=== PATIENT | female | born 1935 | race Caucasian/White ===

== ENCOUNTER 2018-08-27 07:18 | Inpatient (IN) | payer OTHER ==
[~2018-08-27] VITALS: Ht 152.4 cm; Wt 63.6 kg
[2018-08-27 07:22] VITALS: Ht 152.4 cm; Wt 63.6 kg
--- NOTE | 2018-08-27 07:25 | NUR ---
PT C/O GENERALIZED ABD PAIN X 1 WK NO ACTIVE VOMITING. +NAUSEA ABD SOFT NON TENDER. AWAITING MD ORDERS WILL MONITOR
--- NOTE | 2018-08-27 07:30 | NUR ---
MSE COMPLETED BY DR LOPES
[2018-08-27 07:48] LABS: PLATELET COUNT 182 x10^3mcL (130-400)
--- NOTE | 2018-08-27 07:55 | NUR ---
PT TO US
[2018-08-27 08:00] LABS: CARBON DIOXIDE 29.4 mmol/L (21-32); CHLORIDE SERUM 99 mmol/L (98-107); GLUCOSE SERUM 181 mg/dL (74-106); POTASSIUM SERUM 3.6 mmol/L (3.5-5.1); SODIUM SERUM 138 mmol/L (136-145)
[2018-08-27 08:05] LABS: ALBUMIN 3.3 g/dL (3.4-5.0); ALKALINE PHOSPHATASE 99 U/L (46-116); ALT/SGPT 22 U/L (14-59); AST/SGOT 12 U/L (15-37); BAND NEUTROPHIL 2 % (0-10); BASOPHIL 0 % (0-2); BILIRUBIN TOTAL 0.66 mg/dL (0.20-1.00); LIPASE 115 IU/L (73-393); METAMYELOCTE 2 % (0-2); MONOCYTE 10 % (0-7); SEGMENTED NEUTROPHILS 72 % (37-75); TOTAL PROTEIN, SERUM 8.7 g/dL (6.4-8.2); rbc morphology (normal/abnorm) NORMAL (NORMAL)
--- NOTE | 2018-08-27 09:00 | NUR ---
PT BACK FROM US AND CT. PT IN NO DISTRESS LYING IN BED COMFORTABLE WILL MONITOR
--- NOTE | 2018-08-27 09:44 | NUR ---
IV ANTIBIOTIC ROCEPHINE 1GM AT 100ML/HR INFUSING WITH NO PROBLEM WELL NS 1L NS BOLUS. PT IN NO DISTRESS ON CM VSS WILL MONITOR
[2018-08-27] MEDS ORDERED: ZESTRIL5 MG (09:55)
[2018-08-27] MEDS ORDERED: CARVEDILOL3.125 M1 (09:55)
--- NOTE | 2018-08-27 10:13 | NUR ---
REPORT GIVEN TO ANALISA ARGUELLO RESUMING CARE OF PT IN TELE FLOOR
--- NOTE | 2018-08-27 10:20 | NUR ---
PT TRANSPORTED TO TELE FLOOR VIA GURNEY IN NO DISTRESS. AAOX4 VSS ANALISA RN RESUMING CARE OF PT
[2018-08-27 10:45] VITALS: BP 148/46
--- NOTE | 2018-08-27 10:45 | NUR ---
RECEIVED PT FROM ED WITH CC RUQ AND N/V X1 WEEK. PER PT'S DAUGHTER, PT ATE TUNA PRIOR TO SYMPTOMS STARTING. PT IS AAOX4. HAV[place]UPAI ON L EAR. RESP EVEN AND UNLABORED ON RA. C/O RUQ/EPIGASTRIC PAIN 08/04, TOLERABLE. DENIES N/V. REPORTS LAST MEAL THIS AM. PT IS NPO EXCEPT MEDS. VOIDING FREELY. PULSES PALPABLE ON ALL EXTREMITIES. AMBULATORY. IV TO RAC, NO REDNESS OR SWELLING NOTED. PT'S DAUGHTER AT BEDSIDE. ORIENTED TO ROOM AND SURROUNDINGS. HOB ELEVATED. BED IN LOW POSITION, CALL LIGHT WITHIN REACH. WILL CONTINUE TO MONITOR.
--- NOTE | 2018-08-27 14:55 | NUR ---
PT RESTING IN BED WATCHING TV. NO ACUTE DISTRESS. C/O MILD RUQ PAIN, TOLERABLE. DENIES N/V. IVF INFUSING, NO REDNESS OR SWELLING TO IV SITE. CALL LIGHT WITHIN REACH. VISITORS AT BEDSIDE. WILL CONTINUE TO MONITOR.
[2018-08-27 16:30] VITALS: BP 154/69
--- NOTE | 2018-08-27 18:21 | NUR ---
PT SITTING UP IN BED. AAOX4. RESP EVEN AND UNLABORED ON RA. C/O ABD PAIN DUE TO GAS. ENCOURAGED PT TO AMBULATE, PT REFUSED AT THIS TIME. IVF INFUSING, NO REDNESS OR SWELLING NOTED. HOB ELEVATED. VISITORS AT BEDSIDE. BED IN LOW POSITION, CALL LIGHT WITHIN REACH. WILL ENDORSE TO ONCOMING SHIFT.
--- NOTE | 2018-08-27 18:38 | NUR ---
SPOKE WITH DR. MILES OVER THE PHONE REGARDING PT C/O GAS, RECEIVED ORDER FOR SIMETHICONE 80 MG PO QID PRN, ORDERS READ BACK.
[2018-08-27 20:15] VITALS: BP 163/62
[2018-08-27] MEDS ORDERED: CARVEDILOL3.125 M1 PO (20:31)
[2018-08-27] MEDS ORDERED: HCTZ/LISINOPRIL1 TA2 PO (20:33)
--- NOTE | 2018-08-27 20:42 | NUR ---
BP 163/62, DC 79. RECONCILED PT HOME MEDS, PT PROVIDED 2 PILL BOTTLES, ONE FOR LISINOPIL/HCTZ 20-25 WHICH SHE TAKES 1 TABLET PO DAILY. SHE HAS NOT TAKEN TODAY'S DOSE PER PT. OTHER PILL BOTTLE IS FOR CARVEDILOL 3.125MG PO BID. SHE HAS ALSO NOT TAKEN AM DOSE. PAGED DR. MILES TWENTY ONE DEALER FOR DR. MONSE TOWNSEND.
--- NOTE | 2018-08-27 20:51 | NUR ---
DR. BOUCHER CALLED BACK, INFORMED OF CURRENT BP, PT HAS NOT TAKEN HOME MEDS LISINOPRIL/HCTZ 20-25MG PO DAILY AND CARVEDILOL 3.125MG PO BID. DR. MILES ORDERED BOTH HOME MEDS CONTINUED, GIVE 1ST DOSES NOW.
[2018-08-27 22:10] VITALS: BP 143/63
--- NOTE | 2018-08-27 22:52 | NUR ---
EYES CLOSED, BREATHING EVEN AND UNLABORED. IVF INFUSING WELL. CALL LIGHT WITHIN EASY REACH.
--- NOTE | 2018-08-28 04:10 | NUR ---
EYES CLOSED, BREATHING EVEN AND UNLABORED. CALL LIGHT WITHIN EASY REACH
[2018-08-28 05:14] VITALS: BP 139/61
[2018-08-28 06:31] LABS: BASOPHIL % 0.3 % (0-2); PLATELET COUNT 160 x10^3mcL (130-400)
--- NOTE | 2018-08-28 06:34 | NUR ---
AWAKE AND ALERT, STATED SLEPT WELL. AMBULATED TO RESTROOM WITH STEADY GAIT. DENIES HAVING PAIN AT THIS TIME
[2018-08-28 06:39] LABS: ALKALINE PHOSPHATASE 86 U/L (46-116); ALT/SGPT 22 U/L (14-59); AST/SGOT 18 U/L (15-37); BILIRUBIN TOTAL 0.6 mg/dL (0.20-1.00); CALCIUM 8.8 mg/dL (8.5-10.1); CARBON DIOXIDE 26.3 mmol/L (21-32); CHLORIDE SERUM 106 mmol/L (98-107); CREATININE SERUM 0.8 mg/dL (0.6-1.0); GLUCOSE SERUM 143 mg/dL (74-106); POTASSIUM SERUM 3.3 mmol/L (3.5-5.1); SODIUM SERUM 140 mmol/L (136-145); TOTAL PROTEIN, SERUM 7.2 g/dL (6.4-8.2)
[2018-08-28 06:41] LABS: ALBUMIN 2.6 g/dL (3.4-5.0)
--- NOTE | 2018-08-28 07:10 | NUR ---
RECEIVED PT FROM OCEAN EXPORT COORDINATOR NURSE. PT IN BED SLEEPING, AROUSABLE, RESP E/U ON RA. NO ACUTE DISTRESS NOTED. ON TELE 28 SHOWING NSR, HR: 60. IV TO RAC W/ NO SIGNS OF INFILRATION, IVF INFUSING WELL. BED IN LOWEST POSITION AND CALL LIGHT WITHIN REACH. WILL CONTINUE TO MONITOR.
--- NOTE | 2018-08-28 07:15 | NUR ---
EYES CLOSED, BREATHING EVEN AND UNLABORED. IVF INFUSING WELL. CALL LIGHT WITHIN EASY REACH. ENDORSED TO NURSE YULISSA
[2018-08-28 07:49] LABS: RED CELL DISTRIBUTION WIDTH 15.3 % (11.5-14.5)
[2018-08-28 08:03] VITALS: BP 130/59
--- NOTE | 2018-08-28 11:25 | NUR ---
PT RESTING IN BED, AOX4, RESP E/U ON RA. PT C/O OF FEELING DISCOMFORT FROM GAS, MEDICATED ORDERED, DENIES ABD PAIN OR N/V. BED IN LOWEST POSITION AND CALL LIGHT WITHIN REACH. FAMILY AT BEDSIDE. WILL CONTINUE TO MONITOR.
[2018-08-28 12:19] VITALS: BP 142/59
[2018-08-28 15:57] VITALS: BP 149/60
--- NOTE | 2018-08-28 18:51 | NUR ---
IV INFILTRATION TO RAC NOTED. IV REMOVED, CATH INTACT, GAUZE APPLIED. NEW IV TO LFA INSERTED AT THIS TIME, PATENT AND INTACT. IVF CONTINUED INFUSING WEL. PT AOX4, RESP E/U ON RA. DENIES PAIN OR N/V AT THIS TIME. BED IN LOWEST POSITON AND CALL LIGHT WITHIN REACH. WILL ENDORSE TO ONCOMING NURSE.
[2018-08-28 19:17] VITALS: BP 147/88
--- NOTE | 2018-08-28 19:24 | NUR ---
AWAKE AND ALERT, ORIENTED TO NAME, PLACE, TIME AND SITUATION. HOB ELEVATED 30 DEG. BREATHING EVEN AND UNLABORED ON ROOM AIR. IVF OF D5NS INFUSING AT 80ML/HR TO IV SITE TO LEFT FOREARM. CALL LIGHT WITHIN EASY REACH.
--- NOTE | 2018-08-28 19:24 | NUR ---
PT STATED WILLING TO HAVE SURGERY. PAGED DR. RAWLS VIA EXCHANGE.
--- NOTE | 2018-08-28 19:45 | NUR ---
DR. RAWLS CALLED BACK, INFORMED PT AND FAMILY MEMBERS HAVE AGREED TO SURGERY. DR. RAWLS ORDERED NPO AFTER MIDNIGHT, HOLD BLOOD THINNERS, AND CONSENT FOR LAPARASCOPIC POSSIBLE OPEN CHOLECYSTECTOMY.
--- NOTE | 2018-08-28 20:03 | NUR ---
TEMP 100.2F. COOLING MEASURES INITIATED
--- NOTE | 2018-08-28 20:22 | NUR ---
received a call from dr fong -ordered to schedule patient for 08/29 at 0900 for lap /sharif.will inform cn and assigned nurse.
--- NOTE | 2018-08-28 20:24 | NUR ---
Josette BAL informed about plan lap/sharif on patient 08/29 at 0900.
--- NOTE | 2018-08-28 20:37 | NUR ---
INFORMED PT AND PT'S FAMILY SURGERY SCHEDULED FOR 9 AM TOMORROW
--- NOTE | 2018-08-28 22:14 | NUR ---
LATE ENTRY: - CN NINOSKA INFORMED DR. TOWNSEND PT HAS AGREED TO SURGERY AND DR. RAWLS HAS SCHEDULED SURGERY FOR TOMORROW AM
--- NOTE | 2018-08-29 01:29 | NUR ---
NPO AFTER MIDNIGHT
--- NOTE | 2018-08-29 02:51 | NUR ---
eyes closed, breathing even and unlabored on room air. call light within easy reach. ivf infusing well.
--- NOTE | 2018-08-29 03:49 | NUR ---
eyes closed, breathing unlabored. call light within easy reach.
[2018-08-29 05:11] VITALS: BP 171/64
--- NOTE | 2018-08-29 06:17 | NUR ---
AWAKE AND ALERT, BREATHING EVEN AND UNLABORED. KEPT NPO EXCEPT CARVEDILOL SINCE MIDNIGHT. IVF OF D5NS INFUSING WELL. CALL LIGHT WITHIN EASY REACH.
[2018-08-29 06:35] LABS: ALKALINE PHOSPHATASE 95 U/L (46-116); ALT/SGPT 23 U/L (14-59); AST/SGOT 18 U/L (15-37); BILIRUBIN TOTAL 0.6 mg/dL (0.20-1.00); CALCIUM 8.8 mg/dL (8.5-10.1); CARBON DIOXIDE 28.6 mmol/L (21-32); CHLORIDE SERUM 106 mmol/L (98-107); CREATININE SERUM 0.8 mg/dL (0.6-1.0); GLUCOSE SERUM 141 mg/dL (74-106); MAGNESIUM 1.8 mg/dL (1.8-2.4); POTASSIUM SERUM 3.6 mmol/L (3.5-5.1); SODIUM SERUM 142 mmol/L (136-145); TOTAL PROTEIN, SERUM 7.5 g/dL (6.4-8.2)
[2018-08-29 07:10] LABS: ALBUMIN 2.6 g/dL (3.4-5.0)
--- NOTE | 2018-08-29 07:10 | NUR ---
RECEIVED PT IN EBD, VERBAL, ROMANIAN, CALM AND COPPERATIVE TO POC, REPORTED PAIN TO RUQ 7/10, DULL, S/P CHOLECYSTITIS, PERRLA, NO REDNESS/DRAINAGE, IN NO ACUTE RESP DISTRES, LUNGS CTA, CHEST RISE SYMMETRICALY, ABD ROUND AND TENDER TO TOUCH, AMBULATORY, CONTINENT, PALP PULSES, CAP REFIL < 3S, SKIN W/D/C, NO EDEMA, BS ACTIVE, LAST BM 08/24/18, PRE-OP DONE, NORY BATH DONE, CALL LIGHT IN REACH, BED AT LOW POSITION, ALL NEEDS MET, CONTINUE TO MONITOR
--- NOTE | 2018-08-29 07:13 | NUR ---
AWAKE AND ALERT, IV SITE FREE FROM ERYTHEMA OR SWELLING. ENDORSED TO NURSE JAY
--- NOTE | 2018-08-29 07:30 | NUR ---
PT REFUSED TO SIGN INFORM CONSET FOR SURGERY, ANIMAL CONTROL LICENSING WORKER LINE USED TO COMMUNICATE WITH PT, PT WANTED TO TALK TO ANESTHESIA AND SURGEON ABOUT ANESTHESIA MED USED DURING PROCEDURE AND [facility], OR NURSE AWARE, MD AWARE, ANESTHESIA MD ORDER CXR PRIOR SURGERY, PORTABLE CXR DONE AT BEDSIDE, [facility], CONTINUE TO MONITOR
--- NOTE | 2018-08-29 07:50 | NUR ---
OR TECH AND RN AWARE PT WILL SIGN INFORMED CONSENT FOR SURGERY IN THE OR AFTER SEEING ANESTHESIA MD AND SURGEON, AWARE OF [facility], EGG SEPARATOR PHONE PROVIDED TO PATIENT FOR BETTERN UNDERSTANDING OF PATIENT RIGHTS AND PROTOCOL
--- NOTE | 2018-08-29 08:15 | NUR ---
PT ASSISTED BY OR DENISSE AND RN TO SURGERY VIA MIRNA, TELE MONITOR REMOVED AND RETURNED TO [facility] TECH, PT NOT IN ACUTE DISTRESS, NPO, FAMILY AT BEDSIDE
[2018-08-29 08:37] LABS: BASOPHIL % 0 % (0-2); RED CELL DISTRIBUTION WIDTH 15.5 % (11.5-14.5)
[2018-08-29 08:39] LABS: PLATELET COUNT 176 x10^3mcL (130-400)
[2018-08-29 08:46] VITALS: BP 143/49
--- NOTE | 2018-08-29 09:30 | NUR ---
I HAVE REVIEWED THE DATA COLLECTION BY SAUNDRA CHRISTOPHER (NAME):NORY HURT ENTERED ON (DATE/TIME):08/29/18 @ 0203 I CONCUR WITH THE DATA AND ANY EXCEPTIONS OR COMMENTS ARE LISTED BELOW:
--- NOTE | 2018-08-29 12:45 | NUR ---
PT BACK FROM LAP CHOLECYSTECTOMY SURGERY PROCEDURE, SLEEPY, IN NO ACUTE DISTRESS, RESP EVEN AND NON LABORED, AT RA, 96%, IN NO APPARENT PAIN/DISCOMFORT, PT WAS UNDER GENERAL AND LOCAL ANESTHESIA DURING PROCEDURE, 3 INCISION SITE ON ABD WITH RALF, CLOSED SUTURE AND COVER WITH BANDAID, INCISION C/D AND NO S/S OF INFECTION NOTED AT THIS TIME, RANI TUBE AT RUQ NOTED SEROSANGUINOUS DRAINAGE NOTED 5CC DRAINAGE, PICS OF INCISION TAKEN BY SENIOR PRODUCT DEVELOPMENT ENGINEER AND PUT IN CHART, CHEST RISE SYMMETRICALLY, ABD ROUND, BS HYPOACTIVE X 4, PALP PULSES, CAP REFILL < 2S, V/S NOTED T-97.1, HR-60, BP-141/65, RR-20, O2 SAT-96% AT RA, FAMILY AT BEDSIDE, SCD PUT ON, IV SITE TO (L) AC PATENT AND INFUSING WELL, ALL NEEDS MET, MARIAELENA LIGHT IN REACH, BED AT LOW POSITION, RAILS X 2, CONTINUE TO MONITOR
--- NOTE | 2018-08-29 15:08 | NUR ---
PT SLEEPING IN BED, IN NO ACUTE DISTRESS, IN NO APPARENT DISCOMFORT/PAIN, RESP EVEN AND NON-LABORED, CHEST RISE SYMMETRICALLY, IV PATENT AND INFUSING WELL, SCD IN PLACE, TURN Q2H, FAMILY AT BEDSIDE, SAFETY PROTOCOL FOLLOWED, CONTINUE TO MONITOR
[2018-08-29 17:15] VITALS: BP 133/55
--- NOTE | 2018-08-29 18:06 | NUR ---
PT RESTING IN BED, VERBAL, KITTITIAN, PERRLA, IN NO ACUTE DISTRESS, REFUSED PAIN/CP/PRESSURE, REFUSED N/V/ELLIS, RESP EVEN AND NON-LABORED, CHEST RISE SYMMETRICALLY, LUNGS CTA, IV TO LEFT AC PATENT AND INFUDING WELL, AMBULATORY, CONTINENT, RANI TUBE DRAINING WELL WITH SEROSANGUINOUS FLUID, NOTED 50CC, ABD DRESSING CLEAN AND NO ACITVE BLEEDING NOTED, NO S/S OF INFECTION NOTED AT THIS TIME, CALL LIGHT IN REACH, BED AT LOW POSITION, RAILS X 2, WILL ENDORSE TO ONCOMING RN
--- NOTE | 2018-08-29 19:13 | NUR ---
PT RECIEVED FROM THE DAY SHIFT RN. PT IS ALER AND ORIENTED X4, CALM AND COOPERATIVE WITH CARE AT THIS TIME. FAMILY IS AT THE BEDSIDE. PT HAS NO COMPLAINT OF PAIN AT THIS TIME. NO S/S OF ACUTE RESP DISTRESS NOTED. SAFETY AND COMFORT MEASURES MAINTAINED, BED IN LOWEST POSITION, CALL LIGHT WITHIN REACH.
--- NOTE | 2018-08-29 21:05 | NUR ---
PT REFUSED INSULIN. PT EDUCATED ON THE RISKS AND BENEFITS OF INSULIN. PT STILL REFUSED. WILL CONTINUE TO MONITOR.
[2018-08-29 21:35] VITALS: BP 126/52
--- NOTE | 2018-08-30 00:04 | NUR ---
PT IS RESTING IN BED WITH EYES CLOSED AT THIS TIME. NO ACUTE DISTRESS NOTED. PT HAS BEEN CALM AND COOPERATIVE WITH CARE. NO S/S OF PAIN NOTED. IV INFUSING AND INTACT AT THIS TIME. SAFETY AND COMFORT MEASURES MAINTAINED, BED IN LOWEST POSITION, CALL LIGHT WITHIN REACH.
--- NOTE | 2018-08-30 02:37 | NUR ---
PT IS RESTING IN BED WITH EYES CLOSED. NO ACUTE DISTRESS NOTED AT THIS TIME. NO S/S OF PAIN NOTED. PT HAS BEEN CALM AND COOEPRATIVE WITH CARE. SAFETY AND COMFORT MEASURES MAINTAINED, BED IN LOWEST POSITION, CALL LIGHT WITHIN REACH.
--- NOTE | 2018-08-30 03:56 | NUR ---
PT IS RESTING IN BED WITH EYES CLOSED AT THIS TIME. NO ACUTE DISTRESS NOTED. PT HAS BEEN CALM AND COOPERATIVE WITH CARE. SAFETY AND COMFORT MEASURES MAINTAINED, BED IN LOWEST POSITION, CALL LIGHT WITHIN REACH.
[2018-08-30 05:22] VITALS: BP 147/60
--- NOTE | 2018-08-30 05:22 | NUR ---
PT HAS RESTED IN LONG INTERVALS THROUGHOUT THE SHIFT. PT HAS NO COMPLAINT OF PAIN AT THIS TIME. PT HAS BEEN CALM AND COOPERATIVE WITH CARE, IV INFUSING AND INTACT. SAFETY AND COMFORT MEASURES MAINTAINED, BED IN LOWEST POSITION, CALL LIGHT WITHIN REACH. WILL ENDORSE CONTINUITY OF CARE TO THE ONCOMING RN.
[2018-08-30 06:04] LABS: BASOPHIL % 0.4 % (0-2); PLATELET COUNT 170 x10^3mcL (130-400)
[2018-08-30 06:25] LABS: ALKALINE PHOSPHATASE 74 U/L (46-116); ALT/SGPT 45 U/L (14-59); AST/SGOT 60 U/L (15-37); BILIRUBIN TOTAL 0.4 mg/dL (0.20-1.00); CALCIUM 8.3 mg/dL (8.5-10.1); CARBON DIOXIDE 23.6 mmol/L (21-32); CHLORIDE SERUM 110 mmol/L (98-107); CREATININE SERUM 0.8 mg/dL (0.6-1.0); GLUCOSE SERUM 157 mg/dL (74-106); MAGNESIUM 1.8 mg/dL (1.8-2.4); POTASSIUM SERUM 3.4 mmol/L (3.5-5.1); SODIUM SERUM 144 mmol/L (136-145); TOTAL PROTEIN, SERUM 6.3 g/dL (6.4-8.2)
[2018-08-30 06:26] LABS: ALBUMIN 2.1 g/dL (3.4-5.0)
[2018-08-30 06:47] LABS: RED CELL DISTRIBUTION WIDTH 15.5 % (11.5-14.5)
--- NOTE | 2018-08-30 07:10 | NUR ---
RECEIVED PT IN BED, RESTING, VERBAL, [place], DENIED PAIN/ELLIS/PRESSURE, REFUSED N/V/D, NO FACIAL DROOP/SLURRED SPEECH, CALM AND COOPPERATIVE WITH POC AT THIS TIME, PERRLA, NO REDNESS/DRAINAGE, REST EVEN AND NON-LABORED, IN NO ACUTE DISTRESS, CHEST RISE SYMMETRICALLY, LUNGS CTA, RA, 97%, TELE, #28, SINUS EDWIGE, HR 59, ABD ROUND AND NON-TENDER TO TOUCH, BS ACTIVE X4, 3 STAPLED/SUTURED WOUNDS COVER WITH BANDAID TO ABD, RANI DRAIN TO RUQ DRAINING WELL WITH SEROSANGUNOUS, NOTED 10CC, NO S/S OF INFECTION AT THIS TIME, PALP PULSE, CAP REFILL <2S, ON SCD FOR POST-OP, IV SITE TO LEFT AC PATENT AND INFUSING WELL, AMBULATORY, NO EDEMA, CONTINENT, CALL LIGHT IN REACH, BED AT LOW POSITION, RAILS X 2, CONTINUE TO MONITOR
[2018-08-30 08:59] VITALS: BP 149/61
--- NOTE | 2018-08-30 09:08 | NUR ---
[id number] CO-SIGN THE DOCUMENTATION ENTERED BY THE IP HAS BEEN REVIEWED. REVIEWED/CO-SIGNED BY: Joselyn Guaman DOCUMENTATION DONE BY: NORY HURT RN
--- NOTE | 2018-08-30 09:15 | NUR ---
IV TO (L) AC INFILTRATED, IV REMOVED, CATH TIP INTACT, NO ACTIVE BLEEDING NOTED AT THIS TIME, NEW IV INSERTED TO (R) AC, INFUSING WELL, PT AWARE AND IN NO ACUTE DISTRESS. DENIES PAIN/DISCOMFORT AT THIS TIME
--- NOTE | 2018-08-30 09:35 | NUR ---
PT RESTIGN IN BED, IN NO ACUTE DISTRESS, AM MED GIVEN PER MD PERES VIA EMAR, TAKEN WELL, NO ADVERSED SIDE EFFECT NOTED AT THIS TIME, FAMILY AT BEDSIDE, QUESTIONS ASKED AND ANSWERED, NO FURTHER CONCERN NEEDED WHEN ASKED, ALL NEEDS MET, SAFETY PRECAUTION FOLLOWED, CONTINUE TO MONITOR
--- NOTE | 2018-08-30 11:16 | NUR ---
PT IN BED, IN NO ACUTE DISTRESS, AXOX4, FAMILY AT BEDSIDE, DRESSING AT RANI DRAIN WOUND CHANGED PER MD ORDER, NO S/S OF INFECTION NOTED, RANI BAILEY NOTED 50CC, DRAINED, EDUCATE AND DEMONSTRATE TO PT AND FAMILY MEMBER HOW TO CHECK FOR S/S OF INFECTION AND NOW TO DRAIN THE RANI DRAIN, VERBALLY UNDERSTAND AND DEMONSTRATION RETURN NOTED, ALL NEEDS MET, CONTIUE TO MONITOR
[2018-08-30 12:36] VITALS: BP 122/46
--- NOTE | 2018-08-30 15:01 | NUR ---
PT ASSITED TO WALK AROUND BED AND TO BATHROOM, TOLERATED WELL, EDUCATED TO KEEP RANI DRAIN TUBE SAFE DURING AMBULATION, DEMONSTRATION RETURN NOTED, PT ASSISTED BACK TO BED, SAFETY PRECAUTION FOLLOWED, FAMILY AT BEDSIDE, PASSED GAS, CONTINUE TO MONITOR
--- NOTE | 2018-08-30 16:53 | NUR ---
PT IN BED, IN NO ACUTE DISTRESS, FAMILY AT BEDSIDE, BS CHECKED AND NO INSULIN GIVEN PER SLIDING SCALE F/U MD ORDER VIA EMAR, PT AWARE, ASSISTED TO BATHROOM, BACK TO BED, SAFETY PRECAUTION FOLLOWED, CONTINUE TO MONITOR
[2018-08-30 17:31] VITALS: BP 156/67
--- NOTE | 2018-08-30 18:00 | NUR ---
PT IN BED, IN NO ACUTE DISTRESS, PT DRAINED RANI DRAINAGE UNDER SUPERVISION OF NURSING STAFF, GOOD PRACTICE, NOTED 50CC SEROSANGUINOUS OUTPUT, FAMILY AT BEDSIDE, IV INFUSING WELL AND PATENT, RESP EVEN AND NON-LABORED, DENIED PAIN/DISCOMFORT, DENIED N/V/ELLIS/CP, VERBAL, SAFETY PRECAUTION FOLLOWED, ALL NEEDS MET, WILL ENDORSE TO ONCOMING RN
--- NOTE | 2018-08-30 19:30 | NUR ---
PT RECIEVED FROM DAY NURSE. PT RESTING IN BED COMFORTABLY. FAMILY AT BEDSIDE. DENIES PAIN AT THIS TIME. A/O X4, KINYARW[place]DA SPEAKING ONLY, [place] LEFT EAR. MED/SURG PT, DENIES DIZZINESS, N/V, AND PALPATATIONS. PALPABLE PULSES, NO EDEMA NOTED. SCDS AT BEDSIDE. BOWEL SOUNDS ACTIVE X 4, EPIGASTRIC PAIN ON PALPATION. PT. AMBULATORY ABLE TO REPOSITION SELF IN BED. RANI TO RUQ, SEROSANGUINOUS DRAINAGE NOTED. NO S/S OF INFECTION AT THIS TIME. RFA IV, PATENT AND INFUSING. BED AT LOWEST POSITION. CALL LIGHT WITHIN REACH. WILL CONTINUE TO MONITOR.
[2018-08-30 20:33] VITALS: BP 162/60
--- NOTE | 2018-08-31 00:27 | NUR ---
PT RESTING IN BED. PT COMPLAINING OF 7/10 EPIGASTRIC GAS PAIN. GAVE PT PRN NORCO. CALL LIGHT WITHIN REACH. WILL CONTINUE TO MONITOR.
[2018-08-31 06:00] LABS: BASOPHIL % 0.3 % (0-2); PLATELET COUNT 178 x10^3mcL (130-400)
--- NOTE | 2018-08-31 06:00 | NUR ---
ELEVATED BP 169/69. PT DENIES DIZZINESS, N/V, AND PALPATATIONS. 9 AM COREG GIVEN. WILL ENDORSE TO DAY NURSE.
[2018-08-31 06:08] VITALS: BP 168/68
--- NOTE | 2018-08-31 06:15 | NUR ---
PT RESTING IN BED. DENIES PAIN AT THIS TIME. DENIES DIZZINESS, N/V, OR PALPATATIONS. BREATHING EVEN AND UNLABORED. NO SIGNIFICANT CHANGES THIS SHIFT. PT SLEPT THROUGHOUT THE NIGHT. BED AT LOWEST POSITION. CALL LIGHT WITHIN REACH. WILL ENDORSE TO DAY NURSE.
[2018-08-31 06:17] LABS: CALCIUM 8.9 mg/dL (8.5-10.1); CARBON DIOXIDE 25.1 mmol/L (21-32); CHLORIDE SERUM 109 mmol/L (98-107); CREATININE SERUM 0.8 mg/dL (0.6-1.0); GLUCOSE SERUM 94 mg/dL (74-106); POTASSIUM SERUM 3.3 mmol/L (3.5-5.1); SODIUM SERUM 143 mmol/L (136-145)
[2018-08-31 06:40] LABS: RED CELL DISTRIBUTION WIDTH 15.8 % (11.5-14.5)
--- NOTE | 2018-08-31 07:10 | NUR ---
RECEIVED PT IN BED, RESTING, VERBAL, SAMI, DENIED ELLIS/PRESSURE, REFUSED N/V/D, REPORTED GAS PAIN TO ABD, 05/04, REPOSITION AND ASSISTED WITH AMBULATION TO BATHROOM, TAKEN WELL, REASSESSED, 04/06, TOLERABLE PAIN PER PT, NO FACIAL DROOP/SLURRED SPEECH, CALM AND COOPPERATIVE WITH POC AT THIS TIME, PERRLA, NO REDNESS/DRAINAGE, REST EVEN AND NON-LABORED, IN NO ACUTE DISTRESS, CHEST RISE SYMMETRICALLY, LUNGS CTA, RA, 98%, MEDSURG, ABD ROUND AND NON-TENDER TO TOUCH, BS ACTIVE X4, 3 STAPLED/SUTURED WOUNDS COVER WITH BANDAID TO ABD, DRESSING C/D/I, RANI DRAIN TO RUQ DRAINING WELL WITH SEROSANGUNOUS, NOTED 5 CC, NO S/S OF INFECTION AT THIS TIME, PALP PULSE, CAP REFILL <2S, SCD, AMBULATORY, NO EDEMA, CONTINENT, CALL LIGHT IN REACH, BED AT LOW POSITION, RAILS X 2, CONTINUE TO MONITOR
--- NOTE | 2018-08-31 08:43 | NUR ---
NURSING CO-SIGN THE DOCUMENTATION ENTERED BY THE IP HAS BEEN REVIEWED. REVIEWED/CO-SIGNED BY: Joselyn Guaman DOCUMENTATION DONE BY: NORY HURT RN
--- NOTE | 2018-08-31 09:02 | NUR ---
PT ASSITED TO CHAIR BY NURSING STAFF, IN NO ACUTE DISTRESS, REPORT NO DISCOMFORT AT THIS TIME, AXOX4, AM MED GIVEN PER MD ORDER VIA EMAR, TAKEN WELL, NO ASE NOTED AT THIS TIME, ALL NEEDS MET, CALL LIGHT IN REACH, SAFETY PROTOCOL FOLLOWED, CONTINUE TO MONITOR
[2018-08-31 09:30] VITALS: BP 147/69
--- NOTE | 2018-08-31 11:14 | NUR ---
PT RESTING IN BED, EYES CLOSED, IN NO RESP ACUTE DISTRESS, FAMILY AT BEDSIDE, ALL NEEDS MET, SAFETY PRECAUTION FOLLOWED, CONTINUE TO MONITOR
[2018-08-31] MEDS ORDERED: ACETAMINOPHEN-H1 TA1 PO (13:47)
[2018-08-31] MEDS ORDERED: SIMETHICONE80 MG CH (13:48)
[2018-08-31] MEDS ORDERED: AMOXICILLIN/CLA1 TA6 PO (13:56)
[2018-08-31 13:58] VITALS: BP 147/69
--- NOTE | 2018-08-31 14:35 | NUR ---
REMOVED DRESSING. CLEANED WOUNDS WITH SALINE, TOOK PHOTO OF ABDOMEN. DID TEACHING REGARDING EMPTYING RANI DRAIN, RECORDING IT ON PAPER TO TAKE TO MD OFFICE, AND ALSO HOW TO CLEANSE WOUND WITH WOUND CLEANSER, AND CHANGE DRESSING. 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 SON WAS PRESENT, AND UNDERSTOOD.
--- NOTE | 2018-08-31 14:39 | NUR ---
PT RESTING IN BED, IN NO ACUTE RESP DISTRESS, KARLEE ARGUELLO CHANGED ABD DRESSING AND RANI DRAIN DRESSING PER MD PRN ORDER, TAKEN WELL, DRESSING I/C/D, FAMILY AT BEDISDE, CALL LIGHT IN REACH, BED AT LOW POSITION, RAILS X 2, CONTINUE TO MONITOR
--- NOTE | 2018-08-31 17:31 | NUR ---
PT IN CHAIR, IN NO ACUTE RESP DISTRESS, CHEST RISE SYMMETRICALLY, FAMILY AT BEDSIDE, PT DEMONSTRATED RANI DRAIN, NOTED 40CC, SEROSANGUINOUS, DENIES PAIN/PRESSURE, DENIES ELLIS/DIZZINESS, EDUCATION ABOUT F/U CARE, DM DIET, DM FOOT CARE, HTN MONITOR AND DIET, WOUND CARE AND DRESSING CHANGE GIVEN TO PT AND FAMILY MEMBER, VERBALLY UDNERSTANDING, DRESSING CHANGED TO RANI SITE, DRESSING D/C/I, AMBULATORY, CONTINENT, DC PAPER SIGNED AND PUT IN CHART, PIC OF WOUND TAKEN AND PUT IN CHART, PT AWARE OF NEW PRESCRIBED MED AND F/U WITH SURGEON, IV REMOVED, IV CATH TIP INTACT AND PATENT, NO ACTIVE BLEEDING NOTED, EXTRA WOUND DRESSING, WOUND CLEANSER BOTTLE, ABD GAUZE, GAUZE, ALCOHOL WIPE, MEASUREMENT CUP, TAPE AND T-GAUZE GIVEN TO PT FOR WOUND CARE AT HOME AND HH, ALL NEEDS MET, PT REFUSED DINNER AND PACKED FOOD HOME, PT LEFT IN NO ACUTE DISRESS, NURSING STAFF ASSIST PT TO LOBBY USING WC
== END 2018-08-31 17:55 | disposition home health service (06) | DRG 263 ==
LOC: ED 07:18 → DU 09:30 → MU 09:30 → DU 10:27 → MU 08-30 14:57
PROVIDERS: Emergency Medicine; Internal Medicine Pulmonary Disease; Surgery; ADMIT Internal Medicine Pulmonary Disease
PROC: 0FT44ZZ Resection of Gallbladder, Percutaneous Endoscopic Approach (ICD-10-PCS; principal; 2018-08-29 09:00)
DX: K81.0 Acute cholecystitis (principal); E44.0 Moderate protein-calorie malnutrition; E11.9 Type 2 diabetes mellitus without complications; E87.6 Hypokalemia; I10 Essential (primary) hypertension; K82.A1 Gangrene of gallbladder in cholecystitis; Z68.29 Body mass index [BMI] 29.0-29.9, adult; Z79.899 Other long term (current) drug therapy
CPT/HCPCS: 82962; C1758; G0378; J0330; J0694; J0696; J1170; J1644; J2405; J2543; J2704; J2710; J3010; J3475; J3480; J3490; J7030; J7042; J7050; Q0092; Q0162

== ENCOUNTER 2019-03-29 10:31 | Emergency (ER) | payer OTHER ==
[~2019-03-29] VITALS: Ht 147.3 cm; Wt 64.9 kg
[~2019-03-29 10:31] MED LIST: ACETAMINOPHEN-H1 TA1 PO; AMOXICILLIN/CLA1 TA6 PO; CARVEDILOL3.125 M1; CARVEDILOL3.125 M1 PO; HCTZ/LISINOPRIL1 TA2 PO; SIMETHICONE80 MG CH; ZESTRIL5 MG
[2019-03-29 10:36] VITALS: Ht 147.3 cm; Wt 64.9 kg
[2019-03-29 13:01] LABS: BASOPHIL % 0.3 % (0-2); PLATELET COUNT 154 x10^3mcL (130-400)
[2019-03-29 13:07] LABS: RED CELL DISTRIBUTION WIDTH 16.3 % (11.5-14.5)
[2019-03-29 13:09] LABS: CALCIUM 9.1 mg/dL (8.5-10.1); CARBON DIOXIDE 28.2 mmol/L (21-32); CHLORIDE SERUM 103 mmol/L (98-107); CREATININE SERUM 1.3 mg/dL (0.6-1.0); GLUCOSE SERUM 120 mg/dL (74-106); POTASSIUM SERUM 4.8 mmol/L (3.5-5.1); SODIUM SERUM 137 mmol/L (136-145)
[2019-03-29 13:19] LABS: ALBUMIN 3.5 g/dL (3.4-5.0); ALKALINE PHOSPHATASE 164 U/L (46-116); ALT/SGPT 240 U/L (14-59); AMYLASE 33 U/L (25-115); AST/SGOT 470 U/L (15-37); BILIRUBIN TOTAL 0.9 mg/dL (0.20-1.00); LIPASE 204 IU/L (73-393); TOTAL PROTEIN, SERUM 7.8 g/dL (6.4-8.2)
[2019-03-29 18:10] VITALS: BP 132/68
== END 2019-03-29 18:11 | disposition home or self-care (01) ==
LOC: ED 10:31
PROVIDERS: Emergency Medicine
DX: R10.10 Upper abdominal pain, unspecified (principal); R11.2 Nausea with vomiting, unspecified; R78.89 Finding of other specified substances, not normally found in blood; I10 Essential (primary) hypertension; E11.9 Type 2 diabetes mellitus without complications; Z90.49 Acquired absence of other specified parts of digestive tract
CPT/HCPCS: J2405; J7030